=== PATIENT | female | born 1975 | race Caucasian/White ===

== ENCOUNTER → 2017-04-15 | Outpatient (CLI) | payer BC ==
--- NOTE | 2017-04-15 11:19 | RAD ---
DATE: 04/15/2017 EXAM: MAMMO NITIN SCREENING BILATERAL HISTORY: Routine screening COMPARISON: 02/19/2016 This study was interpreted with the benefit of Computerized Aided Detection (CAD). The breast parenchyma is heterogeneously dense, which could reduce sensitivity of mammography. Breast parenchyma level C. FINDINGS: 2-D and 3-D tomosynthesis imaging was performed in CC and MLO projections. No new or enlarging breast densities are seen. There are scattered microcalcifications with a distribution suggesting a benign etiology. No suspicious microcalcifications have developed. IMPRESSION: Stable mammograms without evidence of malignancy. BI-RADS CATEGORY: 2 BENIGN FINDING(S) RECOMMENDED FOLLOW-UP: 12M 12 MONTH FOLLOW-UP PQRS compliance statement: Patient information was entered into a reminder system with a target due date for the next mammogram. Mammography is a sensitive method for finding small breast cancers, but it does not detect them all and is not a substitute for careful clinical examination. A negative mammogram does not negate a clinically suspicious finding and should not result in delay in biopsying a clinically suspicious abnormality. "Our facility is accredited by the [employer] Mammography Program."
== END | disposition home or self-care (01) ==
LOC: MAMMO 10:32
PROVIDERS: ATTEND Specialist
DX: Z12.31 Encounter for screening mammogram for malignant neoplasm of breast (principal); Z85.3 Personal history of malignant neoplasm of breast
CPT/HCPCS: 77063; G0202; 77067

== ENCOUNTER → 2021-02-06 | Outpatient (CLI) | payer BC ==
--- NOTE | 2021-02-06 13:00 | RAD ---
EXAM: XR FOOT_LEFT 3 VIEWS 02/06/2021 12:48 PM CLINICAL INDICATION: Fall, pain and bruising COMPARISON: None TECHNIQUE: 3 views of the left foot FINDINGS: There is a mildly displaced oblique fracture of the fifth metatarsal shaft. No intra-artic ular extension. There is a faint linear lucency with surrounding sclerosis in the proximal navicular on AP view, which may correlate with chronic appearing fragmentation along the dorsal navicular on la teral view. No significant degenerative joint disease. No focal soft tissue abnormality. IMPRESSION: 1. Fifth metatarsal shaft fracture. 2. Linear lucency with surrounding sclerosis in the proximal navicular on AP view is most likely rela tish to chronic fragmentation seen at the dorsal navicular on lateral view. Fracture left likely. Vi elate with site of pain. Electronically signed by: Yee Duckworth MD (02/06/2021 12:57 PM) [id number]
== END ==
LOC: RAD 12:49
PROVIDERS: ATTEND Nurse Practitioner Family
DX: S92.352A Displaced fracture of fifth metatarsal bone, left foot, initial encounter for closed fracture (principal); X58.XXXA Exposure to other specified factors, initial encounter; Y93.89 Activity, other specified; Y92.89 Other specified places as the place of occurrence of the external cause; Y99.8 Other external cause status
CPT/HCPCS: 73630